=== PATIENT | female | born 1935 | race Caucasian/White ===

== ENCOUNTER 2018-07-24 13:38 | Inpatient (IN) | payer MEDICARE ==
--- NOTE | 2018-07-24 14:46 | RAD ---
PORTABLE CHEST: DATE: 07/24/2018. PROVIDED CLINICAL HISTORY: Altered mental status. FINDINGS: NO comparisons. Heart and mediastinal silhouette are within normal limits. There is an at least 5.7 cm left suprahilar parenchymal mass noted. The right lung appears clear. There is no pleural fluid or pneumothorax apparent. IMPRESSION: A 5.7 cm left suprahilar mass suspicious for malignancy. POS: [facility]
[2018-07-24 14:51] LABS: Hemoglobin 13.9 g/dL (12.0-16.0); Mean Corpuscular HGB CONC 33.5 g/dL (32.0-36.0); Mean Corpuscular Hemoglobin 31.2 pg (27.0-31.0); Mean Corpuscular Volume 93.2 fL (78.0-98.0); Mean Platelet Volume 8.2 fL (7.4-10.4); Platelet Count 180 thou/uL (130-400); Red Blood Cell (RBC) Count 4.45 mill/uL (4.20-5.40); White Blood Cell (WBC) Count 22.4 thou/uL (4.8-10.8)
[2018-07-24 14:57] LABS: ALT (SGPT) 189 U/L (8-55); AST (SGOT) 296 U/L (5-34); Albumin 3.2 g/dL (3.4-4.8); Alkaline Phosphatase 331 U/L (40-150); Anion Gap 21 mmol/L (10-20); BUN (Urea Nitrogen) 63 mg/dL (9.8-20.1); Bilirubin, Total 9.1 mg/dL (0.2-1.2); CK (CPK) 487 U/L (29-168); Calc. Creatinine Clearance 0 mL/min (70-130); Calcium 8.4 mg/dL (7.8-10.44); Carbon Dioxide 16 mmol/L (23-31); Chloride 101 mmol/L (98-107); Estimated GFR-MDRD 24; Globulin 2.2 g/dL (2.4-3.5); Glucose 102 mg/dL (83-110); Lipase 89 U/L (8-78); Potassium 4.7 mmol/L (3.5-5.1); Protein, Total 5.4 g/dL (6.0-8.3); Sodium 133 mmol/L (136-145)
[2018-07-24 15:12] LABS: MDiff Complete? YES
[2018-07-24 15:13] LABS: Band 11 % (5-11); Lymphocytes 4 % (21-51); Monocytes 5 % (0-10); Neutrophil 80 % (42-75); Platelet Morphology Comment Appears Adequate; Polychromasia SLIGHT = 2-3 cells (100X) (0-2/hpf)
[2018-07-24 15:27] LABS: CKMB 12.7 ng/mL (0-6.6)
--- NOTE | 2018-07-24 15:30 | CT ---
CT OF THE ABDOMEN AND PELVIS WITHOUT CONTRAST: DATE: 07/24/2018. PROVIDED CLINICAL HISTORY: Abdominal pain. FINDINGS: No comparisons. There is a 1.6 cm noncalcified right lower lobe pulmonary nodule. There is hepatomegaly. The right hepatic lobe measures about 26.7 cm in craniocaudal dimension at th e midclavicular line. There are innumerable ill-defined hypodense masses throughout the liver compat ible with metastatic disease. The solid abdominal organs are suboptimally evaluated in the absence o f IV contrast material but demonstrate an otherwise unremarkable unenhanced CT appearance. There is mild free intraperitoneal fluid present. There is no bowel dilatation, inflammatory fat str anding, or free air apparent. Vascular calcifications are noted. The osseous structures demonstrate no concerning osteoblastic or osteolytic lesions. IMPRESSION: 1. Innumerable hypodense hepatic masses compatible with metastatic disease. 2. Right lower lobe 1.6 cm noncalcified nodule. 3. Mild free intraperitoneal fluid. POS: [facility]
[2018-07-24] MEDS ORDERED: Sodium Chloride 0.9% 1,000 ML IV SCH ×2 (16:00→20:16)
[2018-07-24] MEDS ORDERED: Ondansetron PF 4 MG/2 ML Vial IVP PRN (16:00)
[2018-07-24] MEDS ORDERED: Ondansetron ODT 4 MG TAB SL PRN (16:00)
[2018-07-24] MEDS ORDERED: Aspirin Chewable 81 MG TAB ONE (16:11)
[2018-07-24] MEDS ORDERED: Ondansetron PF 4 MG/2 ML Vial ONE (16:29)
[2018-07-24 17:51] LABS: Troponin I 0.161 ng/mL (< 0.028)
[2018-07-24] MEDS ORDERED: Morphine 4 MG/ML VIAL SLOW IVP PRN (19:39)
[2018-07-24] MEDS ORDERED: Acetaminophen 650 MG Suppository PR PRN (20:06)
[2018-07-24] MEDS ORDERED: Acetaminophen 325 MG TAB PO PRN (20:06)
[2018-07-24 20:34] LABS: INR-International Normal Ratio 1.3; PTT 23.9 SEC (22.9-36.1); Prothrombin Time 16.6 SEC (12.0-14.7)
[2018-07-24 20:41] LABS: Lactic Acid 2.9 mmol/L (0.5-2.2)
[2018-07-24 20:49] LABS: Troponin I 0.218 ng/mL (< 0.028)
[2018-07-24] MEDS: Famotidine/PF 20 mg/2ml Vial SLOW IVP SCH (20:50)
[2018-07-25 00:23] VITALS: BMI 24.0
[2018-07-25] MEDS: Lorazepam 0.5 MG TAB PO PRN (00:36)
[2018-07-25] MEDS: Melatonin 3 MG TAB PO PRN (00:36)
--- NOTE | 2018-07-25 01:23 | HP ---
CHIEF COMPLAINT: Generalized weakness with persistent nausea. HISTORY OF PRESENT ILLNESS/REVIEW OF SYSTEMS: Ms. Sy is a very pleasant 83-year-old woman who has been unwell for approximately 1 month. She reports developing nausea with a decrease in her appetite, subsequent minimal oral intake as well as generalized weakness that began in late 06/2018. She went to see her primary care physician on and states she was seen by the nurse practitioner and noted to be hypotensive with systolic blood pressure in the 90s. She was taken off spironolactone. She went back 2 days later due to persistent symptoms of nausea and weakness. She was then taken off all of her medications including her Coreg. The patient does have a history of CHF diagnosed after being admitted for CHF exacerbation in 02/2018. The patient states she was admitted to [facility] on 07/13/2018. She received a GI cocktail and antiemetics. The patient was discharged with Zofran, but continued with weakness and nausea. She presented to primary care office the following day and was referred to the emergency department once again. The patient states she re-presented to [facility] and underwent an abdominal ultrasound that showed abnormal findings. She was recommended GI evaluation and had to be transferred to [facility] on 07/21/2018. This was due to hospital beds being full at multiple hospitals. The patient states during her stay there, she did not undergo any investigations. She was eventually discharged home and presents with persistent symptoms. In the ED, she has undergone laboratory studies that revealed a white count of 22.4. Her chemistries are remarkable for a BUN of 63 and creatinine of 2. Her LFTs were abnormal with a total bilirubin of 9.1, AST of 296, ALT of 189, and alkaline phosphatase of 331. Her CK-MB was 12.7. Lipase 89. She underwent imaging with a CT of the abdomen and pelvis that has revealed innumerable hypodense hepatic masses compatible with metastatic disease. Also present was a right lower lobe 1.6 cm noncalcified nodule and mild free intraperitoneal fluid. A chest x-ray was done as well showing a 5.7 cm left suprahilar mass suspicious for malignancy. The patient was started on IV fluids and given Zofran. She is being admitted for further management and workup. REVIEW OF SYSTEMS: The patient denies having any fevers, chills, or sweats. Denies having any headaches or dizziness. She has not been experiencing any pain except for mild back discomfort, which she attributes to lying down on very uncomfortable stretchers and beds during her very recent ER visits and admission. Reports having persistent nausea, but denies any vomiting. Has had minimal oral intake. Denies any abdominal pain or cramping. Has not experienced any abdominal bloating or distention. Has not moved her bowels in the last week, but reports flatus. Denies any dysuria or hematuria, but has noted darkening of her urine. Denies chest pain, palpitations, or shortness of breath, but does report generalized weakness. All other review of systems are negative. PAST MEDICAL HISTORY: 1. CHF. 2. Hypertension. 3. New metastatic liver cancer from unknown primary. PAST SURGICAL HISTORY: None. SOCIAL HISTORY: The patient lives with her daughter. Fully independent at baseline. Denies tobacco use, alcohol use, or illicit drug use. ALLERGIES: METRONIDAZOLE, NSAIDS, PENICILLIN, AND PREDNISOLONE. HOME MEDICATIONS: The patient off all previous home medications. PHYSICAL EXAMINATION: GENERAL: The patient appears well developed and in no acute distress. HEENT: Normocephalic and atraumatic. Scleral icterus present. Extraocular movements intact. Oropharynx is clear. NECK: Supple. LUNGS: Clear to auscultation without wheezes, rales, or rhonchi. CARDIAC: Regular rate and rhythm. ABDOMEN: Soft, nontender, and nondistended. Normoactive bowel sounds present. No guarding or rigidity. EXTREMITIES: No edema or swelling. MUSCULOSKELETAL: No point tenderness along her cervical, thoracic, or lumbar spine. No palpable bony deformities. NEUROLOGIC: Alert and oriented x3. SKIN: Without rash or jaundice. INVESTIGATIONS: As mentioned above in HPI. IMPRESSION AND PLAN: Ms. Sy is a very pleasant 83-year-old woman with generalized weakness and persistent nausea that has been ongoing for the last month. She is being admitted for management of the following; 1. Acute kidney injury. Creatinine is elevated at 2 and GFR is 24. We will continue IV fluids; however, we will decrease the rate to 55 mL/hour given her history of congestive heart failure. We will continue to monitor renal function. 2. Nausea. We will continue Zofran. 3. New liver metastases. We will obtain direct bilirubin as well as coags. We will continue to monitor LFTs. Consult placed to Oncology. She did have a large left suprahilar mass noted on the chest x-ray, which could potentially be biopsied. We will consult Pulmonology for this. Further management as per Oncology Service. 4. Gastrointestinal prophylaxis. 5. Deep venous thrombosis prophylaxis. 6. Code status. The patient is undecided. Palliative Care consult requested to discuss advanced directives and complex decision making given new cancer diagnosis. The patient's case was discussed with Dr. Ruiz, who agrees upon care as described above. Job ID: [id number]
[2018-07-25 05:43] LABS: ALT (SGPT) 165 U/L (8-55); AST (SGOT) 294 U/L (5-34); Albumin 2.7 g/dL (3.4-4.8); Alkaline Phosphatase 292 U/L (40-150); Anion Gap 19 mmol/L (10-20); BUN (Urea Nitrogen) 66 mg/dL (9.8-20.1); Calc. Creatinine Clearance 22 mL/min (70-130); Carbon Dioxide 16 mmol/L (23-31); Chloride 103 mmol/L (98-107); Estimated GFR-MDRD 24; Globulin 2.3 g/dL (2.4-3.5); Glucose 68 mg/dL (83-110); Potassium 5.1 mmol/L (3.5-5.1); Sodium 133 mmol/L (136-145)
[2018-07-25] MEDS: MEROPENEM 1 GM/50 ML 1 GM in Premix Bag 1 BAG IVPB SCH ×3 (06:33→22:00)
[2018-07-25 08:50] LABS: Hemoglobin 12.5 g/dL (12.0-16.0); Mean Corpuscular HGB CONC 32.1 g/dL (32.0-36.0); Mean Corpuscular Hemoglobin 30.3 pg (27.0-31.0); Mean Corpuscular Volume 94.4 fL (78.0-98.0); Mean Platelet Volume 8.5 fL (7.4-10.4); Platelet Count 139 thou/uL (130-400); RBC Distribution Width 13.3 % (11.5-14.5); Red Blood Cell (RBC) Count 4.12 mill/uL (4.20-5.40); White Blood Cell (WBC) Count 15.6 thou/uL (4.8-10.8)
[2018-07-25 08:54] LABS: Band 7 % (5-11); Eosinophils 1 % (0-10); Hypochromia SLIGHT = 6-15 cells (100X) (0-5/hpf); Lymphocytes 1 % (21-51); MDiff Complete? YES; Monocytes 3 % (0-10); Neutrophil 86 % (42-75); Platelet Morphology Comment Appears Decreased; Polychromasia SLIGHT = 2-3 cells (100X) (0-2/hpf); Reactive Lymphocytes 2 % (0-10); Tear Drops SLIGHT = 2-5 cells (100X) (0-1/hpf)
--- NOTE | 2018-07-25 12:58 | CT ---
CT CHEST WITHOUT CONTRAST: DATE: 07/25/2018. PROVIDED CLINICAL HISTORY: Abnormal chest radiograph. FINDINGS: Evaluation is limited in the absence of IV contrast material. There is a left hilar/suprahilar lobulated soft tissue mass measuring at least 5.5 x 5.[address] transverse dimensions and approximately 5.9 cm in craniocaudal dimension. This is inseparable fro m the hilar vascular structures including the left main pulmonary artery. There is evidence for soft tissue density within the distal left main bronchus and occlusion of the left upper lobe bronchus. There is an enlarged prevascular lymph node measuring about 1.2 cm. There is a 1.4 cm right lower lobe pulmonary nodule, which is noncalcified. No additional pulmonary nodules are evident. There is a small amount of right pleural fluid. The heart, pericardium, and great vessels are suboptimally evaluated in the absence of IV contrast ma terial. Vascular calcification including coronary calcium is demonstrated. The visualized portions of the upper abdomen demonstrate no significant interval change with respect to 07/24/2018. The osseous structures demonstrate no concerning lytic or blastic lesions. IMPRESSION: 1. Dominant left hilar/suprahilar mass compatible with malignancy. Endobronchial component is noted , and this may be amenable to transbronchial sampling. 2. A 1.4 cm right lower lobe pulmonary nodule also suspicious for malignancy. 3. Known hepatic metastatic disease. 4. Enlarged prevascular lymph node. 5. Small right pleural fluid. POS: [facility]
[2018-07-25] MEDS: Ondansetron PF 4 MG/2 ML Vial IVP PRN ×2 (13:47→21:34)
[2018-07-25] MEDS: Lidocaine 5% Patch TD SCH (13:47)
--- NOTE | 2018-07-25 14:05 | CON ---
DATE OF CONSULTATION: 07/25/2018 CONSULTING PHYSICIAN: NOLBERTO Xavier, who is a PA with the Hospital[employer] group. REASON FOR CONSULTATION: Lung mass. HISTORY OF PRESENT ILLNESS: The patient is an 83-year-old female, who presented to this hospital on transfer from [place]. She has been in emergency rooms several times over the last several days. Her main complaint is constipation and nausea. She underwent a CT of the abdomen yesterday, which demonstrated innumerable hepatic metastasis along with free intraperitoneal fluid. She underwent a CT of the chest today, which demonstrated a large left upper lobe mass that measures 5 cm as its largest dimension and appears to invade in the bronchiole and to the left upper lobe bronchus. PAST MEDICAL HISTORY: 1. She has some type of congestive heart failure. She had been diagnosed with that in February of 2018 in [place]. She had discontinued all of her heart medications because of persistent nausea. 2. I believe she had some idea of the lung mass and liver involvement based on previous workup at [facility]. 3. Hypertension. PAST SURGICAL HISTORY: She has never had surgery. SOCIAL HISTORY: She has smoked about a pack per day since age 32. Aside from 7 years, she quit in the 1970s and 1980s. She quit smoking for good in February 2018. She does not consume alcohol. Does not use illicit drugs. 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 ALLERGIES: METRONIDAZOLE, NSAIDS, PENICILLIN, AND PREDNISOLONE. HOME MEDICATIONS: She is currently not taking any. FAMILY MEDICAL HISTORY: Denies history of cancer. REVIEW OF SYSTEMS: She denies weight loss, fever, chills, or tuberculosis exposure. She has had nausea. She has had vomiting. She has had constipation. She says she has not had a bowel movement in 5 days. No hematuria, dysuria, hematemesis, melena, or hematochezia. No numbness or tingling, but she is diffusely weak. PHYSICAL EXAMINATION: VITAL SIGNS: Temperature 97.5, pulse 85, respirations 18, O2 saturation 96%, and blood pressure 115/57. Height 5 feet 4 inches, weight 140 pounds, and body mass index 24.0. GENERAL: Her skin appears jaundiced. She does not appear to be in any overt distress. HEENT: Sclerae slightly icteric. Oropharynx is clear. NECK: No adenopathy, JVD, or bruits. LUNGS: She has diminished air entry in left upper lobe, right side clear. CARDIOVASCULAR: S1 and S2. Regular without murmur. ABDOMEN: Her liver span is palpable about 4 cm below the right costal margin. It is nontender. Her abdomen is distended. Bowel sounds diminished. EXTREMITIES: No clubbing, cyanosis, or edema. SKIN: Again, her skin is jaundiced throughout. LABORATORY DATA: Sodium 133, potassium 5.1, chloride 103, CO2 16, anion gap is 14, BUN 66, creatinine 1.9, glucose 68, lactate was 2.9, direct bilirubin 9.0, AST 294, ALT 165, alkaline phosphatase 292, albumin 2.7, and calcium level 8.0. White blood cell count 15.6, hemoglobin 12.5, hematocrit 38.9, and platelet count 139, with 86% neutrophils, and 7% bands. INR is 1.3. I personally reviewed a CT of her abdomen and the chest. ASSESSMENT: 1. The most likely scenario is a primary bronchogenic lung cancer with diffuse metastatic spread to her liver. 2. 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 3. Failure to thrive. 4. Past tobacco abuse. 5. Past history of congestive heart failure - not sure if this is systolic or diastolic. PLAN: I discussed workup with the patient. I think this would require either a bronchoscopy or CT needle biopsy of the liver. I discussed the pros and cons of both approaches with the patient. She felt like she needed overnight to discuss this with her and her daughter. I think regardless the way she proceeds, her prognosis from this is quite poor. I have reviewed the orders, agree with the empiric antibiotics. I would also advocate laxative therapy. It looks like GI has also been consulted, so we will await recommendations. In summation, further workup of the cancer depends on the patient's preference. I will check with her again tomorrow. Job ID: [id number]
--- NOTE | 2018-07-25 14:40 | PDOC.PN ---
- Subjective Encounter Start Date: 07/25/18 Encounter Start Time: 08:00 (8) Pt seen for followup re: liver metastases. c/o nausea, constipation, not eating much. - Objective MAR Reviewed: Yes Vital Signs & Weight: Vital Signs (12 hours) Temp Pulse Resp BP BP Pulse Ox 07/25/18 11:37 97.5 F L 85 18 115/57 L 96 07/25/18 08:00 97.5 F L 88 18 102/55 L 98 07/25/18 04:00 97.8 F 80 18 111/67 98 Weight Weight 140 lb I&O: 07/24/18 07/25/18 07/26/18 06:59 06:59 06:59 Intake Total 660 Output Total 500 Balance 160 Result Diagrams: 07/25/18 06:13 07/25/18 04:27 EKG Reviewed by me: Yes (Tele: sinus tachycardia) Phys Exam - Physical Examination Constitutional: NAD HEENT: moist MMs, oral pharynx no lesions, 2+ tonsils Scleral icterus Neck: no nodes, no JVD, supple, full ROM Respiratory: clear to auscultation bilateral Cardiovascular: no rub S1, S2, tachy, reg Gastrointestinal: soft, non-tender, no distention, positive bowel sounds Neurological: moves all 4 limbs Psychiatric: normal affect, A&O x 3 Dx/Plan (1) Liver metastases Code(s): C78.7 - SECONDARY MALIG NEOPLASM OF LIVER AND INTRAHEPATIC BILE DUCT Status: Acute Comment: Suspected primary in lung, await CT chest (2) Lung mass Code(s): R91.8 - OTHER NONSPECIFIC ABNORMAL FINDING OF LUNG FIELD Status: Acute Comment: await CT chest (3) TOMASA (acute kidney injury) Code(s): N17.9 - ACUTE KIDNEY FAILURE, UNSPECIFIED Status: Acute Comment: continue IV fluids, recheck creatinine (4) Abnormal LFTs Code(s): R94.5 - ABNORMAL RESULTS OF LIVER FUNCTION STUDIES Status: Acute Comment: likely secondary to liver metastases (5) HTN (hypertension) Code(s): I10 - ESSENTIAL (PRIMARY) HYPERTENSION Status: Chronic Comment: controlled - Plan * . Review of Systems - Review of Systems Constitutional: weakness Respiratory: negative: Cough, Shortness of Breath, SOB with Excertion, Pleuritic Pain, Wheezing Cardiovascular: negative: chest pain, palpitations, orthopnea, paroxysmal nocturnal dyspnea, edema, light headedness Gastrointestinal: Nausea, Constipation. negative: Vomiting, Abdominal Pain, Diarrhea, Melena, Hematochezia Genitourinary: negative: Dysuria, Frequency, Incontinence, Hematuria, Retention Skin: Yamil - Medications/Allergies Allergies/Adverse Reactions: Allergies Allergy/AdvReac Type Severity Reaction Status Date / Time metronidazole Allergy Verified 07/24/18 19:37 NSAIDS (Non-Steroidal Allergy Verified 07/24/18 19:37 Anti-Inflamma Penicillins Allergy Verified 07/24/18 19:37 prednisolone [From Prelone] Allergy Verified 07/24/18 19:37 Medications: Current Medications Acetaminophen (Tylenol) 650 mg PO Q4H PRN PRN Reason: Headache/Fever/Mild Pain (1-3) Acetaminophen (Tylenol) 650 mg IN Q4H PRN PRN Reason: Headache/Fever/Mild Pain (1-3) Docusate Sodium (Colace) 100 mg PO BID [facility] Famotidine (Pepcid) 20 mg SLOW IVP QPM [facility] Last Admin: 07/24/18 20:50 Dose: 20 mg Meropenem 1 gm/ Device 50 mls @ 100 mls/hr IVPB Q8HR [facility] Last Admin: 07/25/18 13:48 Dose: 50 mls Lidocaine (Lidoderm 5% Patch) 1 patch TD Q24H [facility] Last Admin: 07/25/18 13:47 Dose: 1 patch Lorazepam (Ativan) 0.5 mg PO Q4H PRN PRN Reason: Anxiety Last Admin: 07/25/18 00:36 Dose: 0.5 mg Melatonin (Melatonin) 3 mg PO HS PRN PRN Reason: Insomnia Last Admin: 07/25/18 00:36 Dose: 3 mg Miscellaneous Medication (Lidocaine Patch Removal) 1 each TOP 0100 [facility] Ondansetron HCl (Zofran) 4 mg IVP Q6H PRN PRN Reason: Nausea/Vomiting Last Admin: 07/25/18 13:47 Dose: 4 mg Sodium Chloride (Flush - Normal Saline) 10 ml IVF PRN PRN PRN Reason: Saline Flush
--- NOTE | 2018-07-25 16:32 | CON ---
DATE OF CONSULTATION: 07/25/2018 HISTORY OF PRESENT ILLNESS: Ms. Sy is an 83-year-old female who smoked up until 6 months ago, who presents with 3-4 weeks history of nausea as well as poor oral intake and dry mouth. She has some mid epigastric bloating and abdominal pain as well. Upon admission, her bilirubin was noted to be 9 and CAT scan of the abdomen and pelvis showed multiple liver metastasis. She has no history of malignancy she knows of. She denies pleurisy, chest pain, or cough. She does have some back pain which has been worse over the last few weeks. She does not take any medications at home and has not seen a physician in many years. No chest pain. No other bone pain. No fevers or chills. She has had some night sweats over the last few weeks. She has never had a colonoscopy. PAST MEDICAL HISTORY: 1. Hypertension. 2. Questionable congestive heart failure. CURRENT MEDICATIONS: 1. Tylenol p.r.n. 2. Pepcid 20 mg IV daily. 3. Ativan 0.5 mg p.o. q.4 hours p.r.n. 4. Melatonin 3 mg p.o. at bedtime p.r.n. 5. Meropenem. ALLERGIES: METRONIDAZOLE AND NONSTEROIDAL ANTI-INFLAMMATORIES. SOCIAL HISTORY: She lives in [place]. She is here with her daughter who is quite supportive. She is . She does admit to extensive tobacco use up until 6 months ago, she quit, she is 83 years old. She denies any extensive alcohol use. REVIEW OF SYSTEMS: Otherwise, 10-point review of systems negative. PHYSICAL EXAMINATION: VITAL SIGNS: Temperature 97.5, pulse 88, respirations 18, O2 sat 98% on room air, and blood pressure 102/55. GENERAL: She is elderly, but in no acute distress, quite pleasant. HEENT: Extraocular muscles are intact. Sclerae are obviously icteric. NECK: Supple without lymphadenopathy. CARDIOVASCULAR: Regular rhythm. LUNGS: Clear to auscultation bilaterally. ABDOMEN: Hypoactive bowel sounds. Soft, somewhat distended with minimal bloating, but no rebound or guarding. EXTREMITIES: No edema. LABORATORY DATA: White blood cell count 22, down to 15.6 currently, hemoglobin 12.5, platelets 139, 86% neutrophils. Sodium 133, potassium 5.1, chloride 103, CO2 16, BUN 66, creatinine 1.9, glucose 68, total bilirubin 9.0, direct bilirubin 7.1, AST 294, ALT 165, alkaline phosphatase 292, total protein 5.0, albumin 2.7. CT of the abdomen and pelvis done in the emergency room shows multiple liver metastasis. CT of the chest is pending. ASSESSMENT: Ms. Sy is an 83-year-old female with: 1. Nausea and bloating over the last 3-4 weeks. 2. Multiple liver metastasis. 3. Hyperbilirubinemia. 4. Leukocytosis. PLAN: 1. She has a CT of the chest pending. 2. She will need a biopsy either of her liver or any lung mass. We will leave this up to the primary team. 3. Gastroenterology will need to be consulted tomorrow to decide if there are areas which are stentable or there is anything that can be done about the hyperbilirubinemia. 4. We will follow up after the diagnosis is made. Job ID: [id number]
[2018-07-25] MEDS: Sodium Chloride 0.9% 1,000 ML IV SCH (17:08)
[2018-07-25] MEDS ORDERED: Promethazine HCl 25 MG/ML VIAL IVPB PRN (21:11)
[2018-07-25] MEDS ORDERED: Promethazine HCl 25 MG in Sodium Chloride 0.9% 50 ML IVPB PRN (21:17)
[2018-07-25] MEDS: Famotidine/PF 20 mg/2ml Vial SLOW IVP SCH (21:34)
[2018-07-26] MEDS: Lorazepam 0.5 MG TAB PO PRN ×2 (00:40→19:16)
[2018-07-26] MEDS: Melatonin 3 MG TAB PO PRN ×2 (00:40→20:44)
[2018-07-26] MEDS: Docusate 100 MG CAP PO SCH ×3 (00:42→20:34)
[2018-07-26] MEDS: Lidocaine Patch Removal 1 EACH TOP SCH (01:00)
--- NOTE | 2018-07-26 03:43 | CON ---
DATE OF CONSULTATION: 07/25/2018 CHIEF COMPLAINT: Dry mouth and nausea. HISTORY OF PRESENT ILLNESS: Ms. Sy is an 83-year-old woman who is admitted through the emergency room with weakness and nausea. She had a CT scan performed that showed metastatic disease all of the liver. This was a noncontrasted study. Today, she underwent CT scan of the chest that showed a hilar lung mass that invades to the right mainstem bronchus. She was evaluated by Pulmonology and Oncology. She is considering whether or not she wishes to proceed with bronchoscopy for diagnostic workup. GI was consulted to see if there is anything we could do for the jaundice and biliary obstruction. The patient complains of constipation with the last bowel movement having been a week ago. She gets nauseated anytime she puts anything in her mouth. She is not sure how much weight she has lost. She has been jaundiced, but not sure for how long. She has been unable even to take a laxative for the constipation due to the nausea. PAST MEDICAL HISTORY: CHF and hypertension. PAST SURGICAL HISTORY: Negative. SOCIAL HISTORY: No alcohol or drugs. She quit smoking 6 months ago. FAMILY HISTORY: Negative for GI malignancy. ALLERGIES: METRONIDAZOLE AND NSAIDS. MEDICATIONS: Prior to admission, she has not been taking anything lately. REVIEW OF SYSTEMS: Negative x10 systems reviewed except as stated in the history of present illness. MEDICATIONS: Prescription medications prior to admission include, 1. Pantoprazole. 2. Losartan. 3. Furosemide. 4. Famotidine. 5. Carvedilol. 6. Aspirin. PHYSICAL EXAMINATION: VITAL SIGNS: Temperature 97.7, pulse 84, blood pressure 139/59. GENERAL: She is in no acute distress. She appears uncomfortable. HEENT: Her oropharynx is dry. Dry mucous membranes. Her eyes have scleral icterus. She has no cervical or supraclavicular lymphadenopathy. LUNGS: Clear to auscultation bilaterally. HEART: Regular rate and rhythm. ABDOMEN: Soft, nontender, and nondistended. Bowel sounds are present. EXTREMITIES: No lower extremity edema. She is jaundiced. LABORATORY DATA: Creatinine 1.98 with BUN of 66. Bilirubin 9.0, AST 294, ALT 165, alkaline phosphatase 292, albumin 2.7. IMPRESSION: 1. Lung cancer, widely metastatic to the liver. She is considering bronchoscopy for formal diagnosis. Her prognosis regarding this appears to be poor. She has very poor functional status and extreme nausea. The biliary obstruction limits her options for chemotherapy as well. 2. Jaundice. This is secondary to the diffuse metastatic disease of the liver without any focal biliary obstruction that would improve with mechanical stenting. 3. Constipation. 4. Nausea. RECOMMENDATIONS: 1. She is unable to tolerate oral medications at this time. I will give Dulcolax suppository for the constipation. 2. She has been on Zofran, but in light of the severe constipation, I will try switching this to promethazine IV. 3. If she ultimately fails to improve with promethazine, then a trial of Reglan could be given. I will sign off for now, please call if GI can be of assistance. Job ID: [id number]
[2018-07-26] MEDS: Bisacodyl 10 MG SUPP PR SCH (08:36)
--- NOTE | 2018-07-26 10:11 | PRG ---
DATE OF SERVICE: 07/26/2018 SUBJECTIVE: The patient and daughter were in the room. The patient is in a bad state, says she cannot eat or drink, still can have a bowel movement. OBJECTIVE: VITAL SIGNS: Temperature 98.2, pulse 81, respirations 18, O2 saturation 97%, blood pressure 114/55. HEENT: Unremarkable. NECK: No JVD. LUNGS: Distant breath sounds. CARDIAC: S1 and S2. Regular. ABDOMEN: Protuberant. EXTREMITIES: No edema. SKIN: Jaundiced. LABORATORY DATA: No labs were done today. ASSESSMENT: Metastatic lung cancer to the liver. RECOMMENDATIONS: The family has not decided how they want to proceed with biopsy. I will check with them again tomorrow. Job ID: [id number]
[2018-07-26] MEDS: Ondansetron PF 4 MG/2 ML Vial IVP PRN ×2 (10:45→17:30)
[2018-07-26] MEDS: Sodium Chloride 0.9% 1,000 ML IV SCH (11:30)
[2018-07-26] MEDS: Lidocaine 5% Patch TD SCH (14:03)
[2018-07-26] MEDS: MEROPENEM 1 GM/50 ML 1 GM in Premix Bag 1 BAG IVPB SCH ×2 (14:04→20:34)
--- NOTE | 2018-07-26 16:08 | PDOC.PN ---
- Subjective Encounter Start Date: 07/26/18 Encounter Start Time: 12:00 Pt seen for followup re; liver metastases. Pt sleepy but arousable, not answering questions, could not complete ROS. - Objective Resuscitation Status - Order Detail: 07/26/18 12:41 Resuscitation Status Routine Resuscitation Status: DNAR: NO Resuscitation Discussed with: DAUGHTER NIHARIKA Reviewed: Yes Vital Signs & Weight: Vital Signs (12 hours) Temp Pulse Resp BP BP BP BP 07/26/18 11:51 98.2 F 72 14 116/55 L 07/26/18 09:27 118/74 136/64 07/26/18 08:00 98.2 F 81 114/55 L Pulse Ox 07/26/18 11:51 94 L 07/26/18 09:27 07/26/18 08:00 97 Weight Weight 140 lb I&O: 07/25/18 07/26/18 07/27/18 06:59 06:59 06:59 Intake Total 660 970 Output Total 500 550 Balance 160 420 Result Diagrams: 07/25/18 06:13 07/25/18 04:27 Additional Labs: Labs reviewed by me. Phys Exam - Physical Examination Constitutional: NAD HEENT: moist MMs Icterus Neck: supple Respiratory: clear to auscultation bilateral Cardiovascular: RRR Gastrointestinal: soft Neurological: moves all 4 limbs Psychiatric: normal affect Dx/Plan (1) Liver metastases Code(s): C78.7 - SECONDARY MALIG NEOPLASM OF LIVER AND INTRAHEPATIC BILE DUCT Status: Acute Comment: secondary to lung primary (2) Lung mass Code(s): R91.8 - OTHER NONSPECIFIC ABNORMAL FINDING OF LUNG FIELD Status: Acute Comment: likely lung cancer (3) TOMASA (acute kidney injury) Code(s): N17.9 - ACUTE KIDNEY FAILURE, UNSPECIFIED Status: Acute Comment: continue IV fluids (4) Abnormal LFTs Code(s): R94.5 - ABNORMAL RESULTS OF LIVER FUNCTION STUDIES Status: Acute Comment: likely secondary to liver metastases (5) HTN (hypertension) Code(s): I10 - ESSENTIAL (PRIMARY) HYPERTENSION Status: Chronic Comment: controlled - Plan plan discussed w/ family * . Family leaning towards hospice care, will await decision Review of Systems - Medications/Allergies Allergies/Adverse Reactions: Allergies Allergy/AdvReac Type Severity Reaction Status Date / Time metronidazole Allergy Verified 07/24/18 19:37 NSAIDS (Non-Steroidal Allergy Verified 07/24/18 19:37 Anti-Inflamma Penicillins Allergy Verified 07/24/18 19:37 prednisolone [From Prelone] Allergy Verified 07/24/18 19:37 Medications: Current Medications Acetaminophen (Tylenol) 650 mg PO Q4H PRN PRN Reason: Headache/Fever/Mild Pain (1-3) Acetaminophen (Tylenol) 650 mg KS Q4H PRN PRN Reason: Headache/Fever/Mild Pain (1-3) Bisacodyl (Dulcolax) 10 mg KS DAILY [facility] Last Admin: 07/26/18 08:36 Dose: 10 mg Docusate Sodium (Colace) 100 mg PO BID [facility] Last Admin: 07/26/18 08:36 Dose: 100 mg Famotidine (Pepcid) 20 mg SLOW IVP QPM [facility] Last Admin: 07/25/18 21:34 Dose: 20 mg Meropenem 1 gm/ Device 50 mls @ 100 mls/hr IVPB Q8HR [facility] Last Admin: 07/26/18 14:04 Dose: 50 mls Sodium Chloride (Normal Saline 0.9%) 1,000 mls @ 50 mls/hr IV .Q20H [facility] Last Admin: 07/26/18 11:30 Dose: 1,000 mls Promethazine HCl 25 mg/ Sodium (Chloride) 51 mls @ 102 mls/hr IVPB Q6H PRN PRN Reason: Nausea Last Admin: 07/26/18 14:03 Dose: 51 mls Lidocaine (Lidoderm 5% Patch) 1 patch TD Q24H [facility] Last Admin: 07/26/18 14:03 Dose: 1 patch Lorazepam (Ativan) 0.5 mg PO Q4H PRN PRN Reason: Anxiety Last Admin: 07/26/18 00:40 Dose: 0.5 mg Melatonin (Melatonin) 3 mg PO HS PRN PRN Reason: Insomnia Last Admin: 07/26/18 00:40 Dose: 3 mg Miscellaneous Medication (Lidocaine Patch Removal) 1 each TOP 0100 [facility] Last Admin: 07/26/18 01:00 Dose: 1 each Ondansetron HCl (Zofran) 4 mg IVP Q6H PRN PRN Reason: Nausea/Vomiting Last Admin: 07/26/18 10:45 Dose: 4 mg Sodium Chloride (Flush - Normal Saline) 10 ml IVF PRN PRN PRN Reason: Saline Flush
[2018-07-26 17:58] LABS: ALT (SGPT) 197 U/L (8-55); AST (SGOT) 399 U/L (5-34); Alkaline Phosphatase 328 U/L (40-150); Anion Gap 25 mmol/L (10-20); BUN (Urea Nitrogen) 81 mg/dL (9.8-20.1); Bilirubin, Total 12.9 mg/dL (0.2-1.2); Calc. Creatinine Clearance 16 mL/min (70-130); Carbon Dioxide 11 mmol/L (23-31); Chloride 103 mmol/L (98-107); Estimated GFR-MDRD 17; Globulin 2.2 g/dL (2.4-3.5); Glucose 100 mg/dL (83-110); Potassium 5.4 mmol/L (3.5-5.1); Protein, Total 5.2 g/dL (6.0-8.3); Sodium 134 mmol/L (136-145)
[2018-07-26 18:07] LABS: Hemoglobin 13.6 g/dL (12.0-16.0); Mean Corpuscular HGB CONC 32.4 g/dL (32.0-36.0); Mean Corpuscular Hemoglobin 30.8 pg (27.0-31.0); Mean Corpuscular Volume 95.1 fL (78.0-98.0); Mean Platelet Volume 8.8 fL (7.4-10.4); Platelet Count 137 thou/uL (130-400); RBC Distribution Width 13.5 % (11.5-14.5); Red Blood Cell (RBC) Count 4.41 mill/uL (4.20-5.40); White Blood Cell (WBC) Count 22.8 thou/uL (4.8-10.8)
[2018-07-26 18:27] LABS: Band 12 % (5-11); Lymphocytes 5 % (21-51); MDiff Complete? YES; Monocytes 5 % (0-10); Neutrophil 78 % (42-75); Platelet Morphology Comment Appears Adequate; RBC Morphology Normal
[2018-07-26] MEDS: Famotidine/PF 20 mg/2ml Vial SLOW IVP SCH (20:34)
[2018-07-27] MEDS: Lorazepam 0.5 MG TAB PO PRN (00:34)
[2018-07-27] MEDS: Ondansetron PF 4 MG/2 ML Vial IVP PRN (00:35)
[2018-07-27] MEDS: MEROPENEM 1 GM/50 ML 1 GM in Premix Bag 1 BAG IVPB SCH ×2 (06:10→09:52)
[2018-07-27] MEDS: Lidocaine Patch Removal 1 EACH TOP SCH (06:12)
[2018-07-27 09:10] VITALS: BP 115/54; TEMP 97.8
--- NOTE | 2018-07-27 09:51 | PRG ---
DATE OF SERVICE: 07/27/2018 SUBJECTIVE: Ms. Sy continues to struggle. She can barely get out of bed. OBJECTIVE: VITAL SIGNS: Temperature 97.8, pulse 101, respirations 18, O2 saturation 100% on room air. GENERAL: She is jaundiced throughout. NECK: No adenopathy. No JVD. CHEST: Diminished breath sounds. CARDIAC: S1, S2. Tachycardic. ABDOMEN: Soft. EXTREMITIES: Edematous. 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 PLAN: The patient's family and the patient decided to forego biopsy and go on hospice care. I fully agree with that decision as she has evolved to the point where she would be at prohibitive risk for bronchoscopy. If for some reason they change her mind and wanting to work this up, then I would recommend a CT needle biopsy of the liver, but I doubt they will ask that. Pulmonary will sign off as there are no unresolved issues at this time. Job ID: [id number]
[2018-07-27] MEDS: Bisacodyl 10 MG SUPP PR SCH (09:52)
[2018-07-27] MEDS: Docusate 100 MG CAP PO SCH (09:52)
--- NOTE | 2018-07-27 23:59 | DIS ---
DATE OF ADMISSION: 07/24/2018 DATE OF DISCHARGE: 07/27/2018 PRIMARY CARE PROVIDER: None. DISCHARGE DIAGNOSES: 1. Liver metastasis. 2. Lung mass. 3. Abnormal liver function tests. 4. Acute kidney injury. CONSULTATIONS DURING THIS HOSPITALIZATION: Oncology, Dr. Dwyer and Pulmonology, Dr. Carreon. CONDITION OF PATIENT ON THE DAY OF DISCHARGE: I assessed Ms. Sy on the day of discharge. She is sleeping, not in acute distress. Vital signs are stable. S1 and S2 are heard, regular. Lungs are clear to auscultation bilaterally. DISCHARGE MEDICATIONS: None. HOSPITAL COURSE: Ms. Sy is a pleasant 83-year-old lady who was admitted to [facility] on 07/27/2018, for abnormal liver function tests and liver metastases. She was seen by Pulmonology and Oncology services. CT scan of the chest done on 07/25, showed dominant left hilar/suprahilar mass compatible with malignancy. She also had a 1.4 cm right lower lobe pulmonary nodules suspicious for malignancy. After discussion with Pulmonology and Oncology services, the patient's family also discussed with Palliative Care Service. They elected to have hospice service at home. They did not wish to have any further investigations. The patient is being discharged home for home hospice with compassionate care. DISCHARGE DESTINATION: Home. TOTAL AMOUNT OF TIME SPENT COORDINATING THIS DISCHARGE: 31 minutes. Job ID: [id number]
== END 2018-07-27 12:15 | disposition hospice, home (50) | DRG 181 ==
LOC: ERS 13:38 → 2NO 19:33
PROVIDERS: ADMIT Internal Medicine; ATTEND Internal Medicine
DX: C34.02 Malignant neoplasm of left main bronchus (principal); N17.9 Acute kidney failure, unspecified; C78.7 Secondary malignant neoplasm of liver and intrahepatic bile duct; I11.0 Hypertensive heart disease with heart failure; I50.9 Heart failure, unspecified; D72.829 Elevated white blood cell count, unspecified; E80.6 Other disorders of bilirubin metabolism; R62.7 Adult failure to thrive; K59.00 Constipation, unspecified; Z87.891 Personal history of nicotine dependence; Z88.0 Allergy status to penicillin; Z88.8 Allergy status to other drugs, medicaments and biological substances; Z79.82 Long term (current) use of aspirin
CPT/HCPCS: 36415; 71045; 71250; 74176; 80053; 82140; 82248; 82550; 82553; 83605; 83690; 83880; 84484; 85025; 85610; 85730; 87040; 93005; 96374; J2185; J2405; J2550; J7050; S0028